=== PATIENT | male | born 1995 | race Caucasian/White ===

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

== ENCOUNTER 2021-08-02 11:19 | Emergency (ER) | payer MEDICAID ==
[~2021-08-02] VITALS: Ht 172.7 cm; Wt 77.0 kg
[2021-08-02 11:29] VITALS: BP 143/80
[2021-08-02] MEDS ORDERED: KETOROLAC 60MG/2ML VIAL IM ONE (12:45)
[2021-08-02] MEDS ORDERED: METH-773 MT (14:20)
[2021-08-02] MEDS ORDERED: IBUP-2029 MT (14:20)
== END 2021-08-02 14:44 | disposition home or self-care (01) ==
LOC: ER 11:19
DX: M54.12 Radiculopathy, cervical region (principal); M25.512 Pain in left shoulder; Z79.899 Other long term (current) drug therapy
CPT/HCPCS: 72040; 73030; 96372; 99284; J1885

== ENCOUNTER 2022-03-01 11:24 | Emergency (ER) | payer MEDICAID ==
[~2022-03-01] VITALS: Ht 167.6 cm; Wt 69.0 kg
[~2022-03-01 11:24] MED LIST: IBUP-2029 MT; METH-773 MT
[2022-03-01 11:35] VITALS: BP 119/84
[2022-03-01] MEDS ORDERED: FAMOTIDINE 20MG TABLET PO ONE (12:15)
[2022-03-01] MEDS ORDERED: MAGNESIUM/ALUMINUM HYDROXIDE/SIMETHICONE 30ML UDC PO ONE (12:15)
== END 2022-03-01 13:33 | disposition home or self-care (01) ==
LOC: ER 11:24
DX: F41.9 Anxiety disorder, unspecified (principal)
CPT/HCPCS: 99283

== ENCOUNTER 2023-08-08 10:34 | Emergency (ER) | payer SELFPAY ==
[~2023-08-08] VITALS: Ht 170.2 cm; Wt 73.0 kg
[2023-08-08 10:44] VITALS: O2SAT 100
[2023-08-08] MEDS ORDERED: KETOROLAC 30MG/ML VIAL IM ONE (13:00)
[2023-08-08] MEDS ORDERED: CYCL5TAB MT (13:30)
[2023-08-08] MEDS ORDERED: ACET-2708 MT (13:30)
[2023-08-08] MEDS ORDERED: ACETAMINOPHEN 325MG TABLET PO ONE (13:45)
[2023-08-08 14:30] VITALS: BP 127/73; PULSE 89; RESP 18; TEMP 99.5
== END 2023-08-08 14:44 | disposition home or self-care (01) ==
LOC: ER 10:34
DX: B34.9 Viral infection, unspecified (principal)
CPT/HCPCS: 99283; 96372; J1885

== ENCOUNTER 2023-08-14 20:07 | Emergency (ER) | payer SELFPAY ==
[~2023-08-14] VITALS: Ht 170.2 cm; Wt 79.0 kg
[~2023-08-14 20:07] MED LIST changes: +ACET-2708 MT; +CYCL5TAB MT
[2023-08-14 20:16] VITALS: O2SAT 100
[2023-08-14] MEDS ORDERED: ACETAMINOPHEN 650MG/20.3ML UDC PO ONE (21:45)
[2023-08-15] MEDS ORDERED: DEXAMETHASONE 10 MG/ML VIAL PO ONE (00:15)
[2023-08-15] MEDS ORDERED: KETOROLAC 30MG/ML VIAL IM STA (00:16)
[2023-08-15 01:03] LABS: BASOPHILS % 0.3 % (0.0-2.0); EOSINOPHILS % 0.1 % (0.0-5.0); HEMATOCRIT. 44.3 % (42.0-52.0); HEMOGLOBIN. 14.5 g/dL (14.0-18.0); LYMPHOCYTES % 10.5 % (20.0-50.0); MEAN CORPUSCULAR HEMOGLOBIN 30.5 pg (28.0-32.0); MEAN CORPUSCULAR HGB CONC 32.7 g/dL (31.0-37.0); MEAN CORPUSCULAR VOLUME 93.5 fL (80.0-94.0); MEAN PLATELET VOLUME 9.4 fl (7.4-10.4); MONOCYTES % 5.5 % (2.0-8.0); NEUTROPHILS % 83.6 % (40.0-76.0); PLATELET 350 x1000/uL (130-400); RED BLOOD CELL COUNT 4.73 mill/uL (4.7-6.1); RED CELL DISTRIBUTION WIDTH 12.8 % (11.6-14.6); WHITE BLOOD COUNT 18.5 x1000/uL (4.5-11.0)
[2023-08-15 01:19] LABS: ALANINE AMINOTRANSFERASE 11 IU/L (10-49); ALBUMIN 5.1 g/dL (3.2-4.8); ASPARTATE AMINOTRANSFERASE 15 IU/L (<34); BILIRUBIN TOTAL 0.7 mg/dL (0.1-1.0); CALCIUM 10.1 mg/dL (8.7-10.4); CARBON DIOXIDE 24 mEq/L (21-32); CHLORIDE 100 mEq/L (98-107); CREATININE 0.7 mg/dL (0.6-1.3); GLUCOSE 82 mg/dL (70-105); POTASSIUM 3.8 mEq/L (3.5-5.1); PROTEIN TOTAL 8.1 g/dL (6.0-8.3); SODIUM 138 mEq/L (136-145); UREA NITROGEN BLOOD 5 mg/dL (9-23)
[2023-08-15] MEDS ORDERED: SODIUM CHLORIDE 0.9% 1,000 ML IV ONE (01:30)
[2023-08-15] MEDS ORDERED: AMPICILLIN SOD/SULBACTAM NA 3 G in SODIUM CHLORIDE 0.9% 100 ML IV SCH (01:30)
[2023-08-15] MEDS ORDERED: MISCELLANEOUS MEDICATION 1 EA PO ONE (04:15)
[2023-08-15] MEDS ORDERED: BACITRACIN ZINC OINT UDPKT TOP ONE (04:15)
[2023-08-15] MEDS ORDERED: LIDOCAINE HCL/PF 1% 10 MG/ML 5ML VIAL INFIL ONE (04:15)
[2023-08-15] MEDS ORDERED: TETANUS, DIPHTHERIA, PERTUSSIS VAC/PF 0.5ML (>10YR OLD) IM ONE (04:15)
[2023-08-15] MEDS ORDERED: AZIT250T12 MT (04:34)
[2023-08-15] MEDS ORDERED: MED4 MT (04:54)
[2023-08-15] MEDS ORDERED: ONDANSETRON HCL 4MG/2ML INJ IV ONE (05:00)
[2023-08-15] MEDS: BENZOCAINE/LANOLIN/ALOE VERA SPRAY TOP NR ×2 (05:02→05:47)
[2023-08-15 05:51] LABS: CLARITY URINE CLEAR (CLEAR); COLOR URINE YELLOW (YELLOW); PH URINE 5.5 (4.5-8.0); SPECIFIC GRAVITY URINE 1.026 (1.005-1.030)
[2023-08-15 05:52] LABS: GLUCOSE URINE NEGATIVE (NEGATIVE); KETONES URINE 4+ (NEGATIVE); PROTEIN URINE 1+ (NEGATIVE)
[2023-08-15 05:53] LABS: LEUKOCYTE ESTERASE URINE NEGATIVE (NEGATIVE); NITRITE URINE NEGATIVE (NEGATIVE); OCCULT BLOOD URINE NEGATIVE (NEGATIVE)
[2023-08-15 06:20] VITALS: BP 111/85; PULSE 77; RESP 20; TEMP 97.3
[2023-08-15] MEDS ORDERED: IOHEXOL-300 100 ML BOTTLE ONE (06:37)
[2023-08-15 07:52] LABS: BACTERIA URINE NONE SEEN; RBC URINE 0-2 /hpf (0-2); SQUAMOUS EPITHELIAL CELL URINE FEW /lpf (RARE/1+); WBC URINE 0-2 /hpf (0-2)
[2023-08-15 11:26] LABS: MONOTEST NEGATIVE (NEGATIVE)
== END 2023-08-15 06:26 | disposition home or self-care (01) ==
LOC: ER 20:07
DX: J02.0 Streptococcal pharyngitis (principal); B95.0 Streptococcus, group A, as the cause of diseases classified elsewhere
CPT/HCPCS: 99285; 80053; 81003; 87430; 85025; 86308; 36415; 70492; 90715; 90471; 96365; 96372; 96375; Q9967; J0295; J1100; J1885; J3490; J2405; J7050; J7030; Z7610 ×6; 10060